=== PATIENT | female | born 1965 | race Caucasian/White ===

== ENCOUNTER → 2016-04-25 | Day surgery (SDC) | payer BC, OTHER ==
[~2016-04-25] MED LIST: Buffered Lidocaine 1% SYR 3ML* 3 ML/SYR SYRINGE ONE; Bupivacaine 0.25% SDV* 30 ML ONE; Dexamethasone IV* 4 MG/ML 1 ML (4 MG) IV SLOW PU ONE; Dexamethasone IV* 4 MG/ML 1 ML (4 MG) ONE; DiMENhydriNATE IV* 50 MG/ML VIAL IV PUSH PRN; Famotidine IV* 10 MG/ML 2 ML (20 mg) IV ONE; Famotidine IV* 10 MG/ML 2 ML (20 mg) ONE; Glycopyrrolate IV* 0.2 MG/ML 1 ML VIAL ONE; Ketorolac INJ* 30 MG/ML 1 ML VIAL ONE; Lidocaine 2% PF * 5 ML VIAL ONE; Midazolam* 1 MG/ML 5 ML VIAL (5 MG) ONE; Ondansetron INJ* 2 MG/ML VIAL IV PRN; Ondansetron INJ* 2 MG/ML VIAL ONE; Propofol* 10 MG/ML 20 ML BTL IV PUSH ONE; ceFAZolin 2 GM PREMIX (*) 2 GM/50 ML BAG IVPB ONE; fentaNYL* 50 MCG/ML 2 ML VIAL (100 MCG VIAL) IV PRN; fentaNYL* 50 MCG/ML 5 ML VIAL (250 MCG VIAL) ONE; oxyCODONE/Acetamin 5/325 MG* TAB PO PRN
[2016-04-25] MEDS: Buffered Lidocaine 1% SYR 3ML* 3 ML/SYR SYRINGE INTRADERM ONE (08:27)
[2016-04-25 10:42] VITALS: BP 110/54
--- NOTE | 2016-04-26 04:53 | OP ---
DATE OF OPERATION: 04/25/16 - LOCATED WITHIN [facility] DATE OF : 69 SURGEON: nOeil Jackson MD FOOD AND DRUG RESEARCH SCIENTIST: TAI Forde ANESTHESIOLOGIST: Dr. Escobedo. ANESTHESIA: General. PRE-OP DIAGNOSES: 1. Left carpal tunnel syndrome. 2. Left cubital tunnel syndrome. POST-OP DIAGNOSES: 1. Left carpal tunnel syndrome. 2. Left cubital tunnel syndrome. OPERATIVE PROCEDURE: 1. Left open carpal tunnel release. 2. Left in situ cubital tunnel release. INDICATIONS: Ms. Avila is a 50-year-old female with signs and symptoms of carpal and cubital tunnel syndrome. She is very tender just distal to the medial epicondyle right at the beginning of the FCU fascia about the elbow. We talked about risks and benefits. She elected to proceed with surgery. She also has some dorsoradial upper arm pain and trapezial pain. I did tell her that it is very unpredictable whether or not this would improve with the surgery and certainly the elbow discomfort and the volar forearm pain and discomfort, numbness and tingling in the fingers should have good chance of improving. ESTIMATED BLOOD LOSS: 5 mL. COMPLICATIONS: None. FINDINGS: As expected. DESCRIPTION OF PROCEDURE: Ms. Avila was seen in the preoperative holding area and the correct side and site were marked. We came back to the operating room where the anesthesia was induced, and the arm was prepped and draped in the usual fashion. Formal time-out was performed. I went ahead and made a standard 2 to 3 cm longitudinal carpal tunnel incision using the normal landmarks. Dissection was carried down through the skin, subcutaneous tissue, and palmar fascia. Prior to opening the transverse carpal ligament, I created a subcutaneous tunnel just ulnar to the palmaris longus tendon. I then came back distally and performed the release of the transverse carpal ligament sharply with the knife. The release went from distal to the proximal and was just radial to the hook of the hamate. When I got to the level of the proximal aspect of the incision and the volar wrist flexion crease , I went ahead and placed a [place]alia retractor in the subcutaneous tunnel and elevated and retracted the skin and subcutaneous tissue superficially. All the rest of the release of the transverse carpal ligament and the distal antebrachial fascia was done with a tenotomy scissors to a level about 4 to 5 cm proximal to the volar wrist flexion crease. I then went ahead and checked the decompression. It looked very nice proximally and distally. The superficial palmar arch was seen. There was absolutely no compression on the nerve, so I went ahead and irrigated the wound and the wound was closed with some 4-0 nylon suture. We then turned to our attention to the posterior medial aspect of the elbow. A curvilinear incision was made across the ulnar nerve centered over Melgar's ligament and extended a few centimeters distally and a few centimeters proximally. Dissection was carried down through the subcutaneous tissue. The medial antebrachial nerve was identified and protected. Once all the superficial dissection was performed, I then went ahead and used my tenotomy scissors to expose the ulnar nerve just proximal to Melgar's ligament. The decompression was then carried proximally all the way up to the level of the arcade of Rutledge, and the decompression was completed proximally by releasing the arcade of [place]ledge. I then used my tenotomy scissors to release Melgar's ligament. I then released the superficial FCU fascia and split the two ends of the FCU with the retractor and then released the deep subfascial layer of the FCU. There was absolutely no compression on the nerve distally or proximally. I then flexed and extended the elbow. The ulnar nerve did want to just move a little bit medially towards the medial epicondyle. I went ahead and grabbed a piece of Melgar's ligament and just closes very loosely over the ulnar nerve. There was absolutely no evidence of ulnar nerve instability or subluxation, so I thought this was plenty adequate. I went ahead and irrigated the wound. Hemostasis was obtained with a Bovie. I then went ahead closed the subcutaneous and deep layers with some 3-0 Polysorb suture. The skin was closed with 4-0 nylon suture. I then infiltrated the both operative sites with 30 mL of Marcaine in total. Wounds were then dressed with Xeroform, 4x4s, and ABD over the elbow, some sterile Webril, and Bronson wrap. She was then woken back up and taken to the recovery room in stable condition. [id number]/[facility] #: [id number] DARON
== END | disposition home or self-care (01) ==
LOC: OREAST 07:14
PROVIDERS: ATTEND Orthopaedic Surgery Hand Surgery
DX: G56.02 Carpal tunnel syndrome, left upper limb (principal); G56.22 Lesion of ulnar nerve, left upper limb
CPT/HCPCS: J0690; J1100; J1885; J2250; J2405; J2704; J3010

== ENCOUNTER 2017-08-28 10:09 | Day surgery (SDC) | payer OTHER ==
[~2017-08-28 10:09] MED LIST changes: +Buffered Lidocaine 0.9% SYRIN* 5 ML/SYR SYRINGE INTRADERM ONE; -Buffered Lidocaine 1% SYR 3ML* 3 ML/SYR SYRINGE ONE; -Bupivacaine 0.25% SDV* 30 ML ONE; -Dexamethasone IV* 4 MG/ML 1 ML (4 MG) IV SLOW PU ONE; -Dexamethasone IV* 4 MG/ML 1 ML (4 MG) ONE; -DiMENhydriNATE IV* 50 MG/ML VIAL IV PUSH PRN; -Famotidine IV* 10 MG/ML 2 ML (20 mg) ONE; -Glycopyrrolate IV* 0.2 MG/ML 1 ML VIAL ONE; -Ketorolac INJ* 30 MG/ML 1 ML VIAL ONE; -Lidocaine 2% PF * 5 ML VIAL ONE; -Ondansetron INJ* 2 MG/ML VIAL IV PRN; -Ondansetron INJ* 2 MG/ML VIAL ONE; -Propofol* 10 MG/ML 20 ML BTL IV PUSH ONE; -ceFAZolin 2 GM PREMIX (*) 2 GM/50 ML BAG IVPB ONE; -fentaNYL* 50 MCG/ML 2 ML VIAL (100 MCG VIAL) IV PRN; +fentaNYL* 50 MCG/ML 2 ML VIAL (100 MCG VIAL) ONE; -fentaNYL* 50 MCG/ML 5 ML VIAL (250 MCG VIAL) ONE; -oxyCODONE/Acetamin 5/325 MG* TAB PO PRN
[2017-08-28] MEDS ORDERED: ceFAZolin 2 GM PREMIX (*) 2 GM/50 ML BAG IVPB ONE (10:13)
[2017-08-28] MEDS ORDERED: Famotidine IV* 10 MG/ML 2 ML (20 mg) ONE (10:13)
[2017-08-28] MEDS ORDERED: Scopolamine 1.5 mg* PATCH ONE (11:29)
[2017-08-28] MEDS ORDERED: Betamethasone INJ* 6 MG/ML 5 ML VIAL (30 MG) ONE ×2 (11:33→11:35)
[2017-08-28] MEDS ORDERED: Bupivacaine 0.25% SDV* 30 ML ONE (11:34)
[2017-08-28] MEDS ORDERED: Lidocaine 1% INJ* 10 MG/ML 30 ML SDV ONE (11:35)
[2017-08-28] MEDS ORDERED: Scopolamine 1.5 mg* PATCH TRANSDERM SCH (12:00)
[2017-08-28] MEDS ORDERED: Dexamethasone IV* 4 MG/ML 1 ML (4 MG) ONE (12:33)
[2017-08-28] MEDS ORDERED: Propofol* 10 MG/ML 20 ML BTL IV PUSH ONE (12:33)
[2017-08-28] MEDS ORDERED: Ketorolac INJ* 30 MG/ML 1 ML VIAL ONE (12:33)
[2017-08-28] MEDS ORDERED: Lidocaine 2% PF * 5 ML VIAL ONE (12:33)
[2017-08-28] MEDS ORDERED: Naloxone* 0.4 MG/ML 1 ML VIAL IV PRN (13:55)
[2017-08-28] MEDS ORDERED: Ondansetron INJ* 2 MG/ML VIAL IV PRN (13:55)
[2017-08-28] MEDS ORDERED: Acetaminophen TAB* 325 MG PO PRN (13:55)
[2017-08-28] MEDS ORDERED: oxyCODONE TAB* 5 MG TAB PO PRN (13:55)
[2017-08-28] MEDS ORDERED: HYDROcodone/ACETAMIN 5-325 MG* 1 TAB ONE (14:14)
[2017-08-28 14:55] VITALS: BP 127/82
--- NOTE | 2017-08-30 07:27 | OP ---
DATE OF OPERATION: 08/28/17 - [facility] DATE OF : 69 SURGEON: Oneil Jackson MD MARKETING OUTREACH COORDINATOR: TAI Gill ANESTHESIOLOGIST: Meenu Figueroa MD ANESTHESIA: General. PRE-OP DIAGNOSES: 1. Right carpal tunnel syndrome. 2. Right cubital tunnel syndrome. 3. Right index trigger finger. 4. Right middle trigger finger. POST-OP DIAGNOSES: 1. Right carpal tunnel syndrome. 2. Right cubital tunnel syndrome. 3. Right index trigger finger. 4. Right middle trigger finger. OPERATIVE PROCEDURE: 1. Right ulnar nerve decompression at the elbow with anterior transposition. 2. Right carpal tunnel release. 3. Right index trigger finger steroid injection. 4. Right middle trigger steroid injection. ESTIMATED BLOOD LOSS: 5 mL. COMPLICATIONS: None. FINDINGS: There was instability of the ulnar nerve. DESCRIPTION OF PROCEDURE: Latha was seen in the preoperative holding area. The correct side, site, and procedure were identified. We came back to the operating room and anesthesia was induced. The arm was prepped and draped in usual fashion. A time-out was performed. I first gave Latha a steroid injection into the right index finger. 1 mL of 1 % plain lidocaine and 6 mg of betamethasone were injected into the area. I next gave her right middle finger steroid injection consisting of the same medications. After the injections were done, we proceeded with the carpal tunnel release. I made a 2- to 3-cm longitudinal incision in the standard location for an open carpal tunnel release. Dissection was carried down through subcutaneous tissue and palmar fascia. The transverse carpal ligament was released off the radial aspect of the hook of the hamate from distal to proximal. Proximally, I released the fascia and subcutaneous tissue and retracted this volarly and ulnarly and then under direct visualization, I released the remainder of the transverse carpal ligament and distal antebrachial fascia to a level several centimeters proximal to the wrist flexion crease. I checked the decompression, everything was completely decompressed. There was absolutely no compression on the nerves. We irrigated out the wound and the skin was closed with 4-0 nylon suture. Lastly, I made a curvilinear incision centered over Melgar's ligament in line with the ulnar nerve. Dissection was carried down, the medial antebrachial cutaneous nerve was identified and was protected throughout the entirety of the case. The fascia overlying the ulnar nerve was released starting just proximal to Melgar's ligament and up proximally past the arcade of [place]reck[place], then the ligament was released, lastly the fascia and the two ends of the FCU, and then the subfascial layer was released in its entirety. The motor branches to the FCU were preserved. Once the decompression was completed, it was obvious that the nerve was quite unstable, in fact even prior to the decompression, it was sitting perched on the medial epicondyle and after the decompression, it frankly subluxated anterior to the medial epicondyle. I therefore performed a neurolysis. I excised the intermuscular septum. I excised the leading edge of the FCU fascia. I raised double opposing flaps off the flexor pronator fascia in a Z-type fashion. I performed some intraneural dissection to gain some length on the motor branch of the FCU. Once everything was nice and mobile, I transposed the ulnar nerve on to the soft bed of muscular tissue, the septae from the tendons had been excised. The fascial flaps were sewed end-to-end to keep the nerve in the transposed position. I then flexed and extended the elbow multiple times, there was no absolutely no kinking or stretching or bending of the nerve. The wound was irrigated out. Hemostasis was obtained with a combination of bipolar and the Bovie. Once hemostasis was obtained, the subcutaneous tissue was reapproximated with 3-0 Vicryl, the skin was closed with 3-0 Monocryl, and Steri-Strips. The wound was dressed with Xeroform, 4x4s , sterile Webril, and a long arm splint was applied. I had infiltrated all the operative areas with 0.25% plain Marcaine prior to placing the splint. Tourniquet was deflated. The arm pinked up immediately. She was woken up and taken to the recovery room in stable condition. [id number]/[facility] #: [id number] DARON
== END 2017-08-28 14:45 | disposition home or self-care (01) ==
LOC: OREAST 10:09
PROVIDERS: ATTEND Orthopaedic Surgery Hand Surgery
DX: G56.01 Carpal tunnel syndrome, right upper limb (principal); G56.21 Lesion of ulnar nerve, right upper limb; M65.321 Trigger finger, right index finger; M65.331 Trigger finger, right middle finger; Z87.891 Personal history of nicotine dependence
CPT/HCPCS: A9270-GY; J0690; J0702; J1100; J1885; J2250; J2704; J3010

== ENCOUNTER 2018-02-19 07:21 | Day surgery (SDC) | payer OTHER ==
[~2018-02-19 07:21] MED LIST changes: +Dexamethasone TAB* 4 MG PO ONE; +DiMENhydriNATE IV* 50 MG/ML VIAL IV PUSH PRN; -Midazolam* 1 MG/ML 5 ML VIAL (5 MG) ONE; +Naloxone* 0.4 MG/ML 1 ML VIAL IV PRN; +Ondansetron TAB* 4 MG PO ONE; +PROCHLORPERAZINE INJ 5 MG/ML 2 ML VIAL IV PRN; +fentaNYL* 50 MCG/ML 2 ML VIAL (100 MCG VIAL) IV PRN; -fentaNYL* 50 MCG/ML 2 ML VIAL (100 MCG VIAL) ONE; +oxyCODONE/Acetamin 5/325 MG* TAB PO PRN
[2018-02-19] MEDS ORDERED: Dexamethasone TAB* 4 MG ONE (07:24)
[2018-02-19] MEDS ORDERED: Famotidine IV* 10 MG/ML 2 ML (20 mg) ONE (07:24)
[2018-02-19] MEDS ORDERED: Ondansetron ODT TAB* 4 MG ONE (07:24)
[2018-02-19] MEDS ORDERED: fentaNYL* 50 MCG/ML 2 ML VIAL (100 MCG VIAL) ONE (08:06)
[2018-02-19] MEDS ORDERED: KETAMINE HCL* 50 MG/ML 10 ML VIAL ONE (08:06)
[2018-02-19] MEDS ORDERED: Midazolam* 1 MG/ML 5 ML VIAL (5 MG) ONE (08:07)
[2018-02-19] MEDS ORDERED: Bupivacaine 0.25% SDV PF* 10 ML VIAL INJ ONE (08:26)
[2018-02-19] MEDS ORDERED: Propofol* 10 MG/ML 20 ML BTL ONE (09:04)
[2018-02-19] MEDS ORDERED: Lidocaine 2% PF * 5 ML VIAL ONE (09:04)
[2018-02-19 09:39] VITALS: BP 138/62
--- NOTE | 2018-02-20 03:46 | OP ---
DATE OF OPERATION: 02/19/18 [facility] DATE OF : 69 SURGEON: Oneil Jackson MD [employer] ASSOCIATE JUSTICE: TAI Gill ANESTHESIOLOGIST: Dr. Cronin ANESTHESIA: Local MAC. PRE-OP DIAGNOSIS: Right index and middle trigger fingers. POST-OP DIAGNOSIS: Right index and middle trigger fingers. OPERATIVE PROCEDURE: 1. Right index trigger finger release. 2. Right middle trigger finger release. INDICATIONS: Latha is a 52-year-old. She has had trigger fingers that have failed nonoperative treatment. We had talked about risks and benefits. She had wanted to proceed with the trigger finger releases. ESTIMATED BLOOD LOSS: 2 mL. COMPLICATIONS: None. FINDINGS: See above and below. DESCRIPTION OF PROCEDURE: Latha was seen in the preoperative holding area. The correct side, site, and procedure were identified. We came back to the operating room. The arm was prepped and draped in the usual fashion. A time- out was performed. The arm was exsanguinated with the Esmarch and the tourniquet was inflated to 250 mmHg. I made a transverse incision in the distal palmar crease over the index finger and another over the middle finger. Dissection was carried down. The digital nerves were protected throughout the surgery. I released first the A1 tirso of the right index finger along its radial third longitudinally. Once the release was completed distally and proximally, I performed a little tenosynovectomy around the tendons. Everything was moving nicely at this point , so I turned my attention to the middle finger. I then incised the A1 tirso of the middle finger along radial third longitudinally and the release was completed distally and proximally with tenotomy scissors. The tenosynovium was excised around the tendons there. The finger was then gliding nicely, so irrigated out the wound. Both skin incisions were closed with 4-0 nylon suture. Wounds were dressed and she was taken to the recovery room in stable condition. Tourniquet was used at 250 mmHg throughout the case. [id number]/[facility] #: [id number] MTDD
== END 2018-02-19 09:55 | disposition home or self-care (01) ==
LOC: OREAST 07:21
PROVIDERS: ATTEND Orthopaedic Surgery Hand Surgery
DX: M65.321 Trigger finger, right index finger (principal); M65.331 Trigger finger, right middle finger
CPT/HCPCS: A9270-GY; J2250; J2704; J3010; J3490; J8540

== ENCOUNTER 2019-04-15 07:07 | Day surgery (SDC) | payer BC, OTHER ==
[~2019-04-15 07:07] MED LIST changes: -Buffered Lidocaine 0.9% SYRIN* 5 ML/SYR SYRINGE INTRADERM ONE; +Buffered Lidocaine 1% SYRIN* 1 ML/SYRINGE INTRADERM ONE; -Dexamethasone TAB* 4 MG PO ONE; -DiMENhydriNATE IV* 50 MG/ML VIAL IV PUSH PRN; -Famotidine IV* 10 MG/ML 2 ML (20 mg) IV ONE; +Glycopyrrolate IV* 0.2 MG/ML 1 ML VIAL ONE; +Ketorolac INJ* 30 MG/ML 1 ML VIAL ONE; +Lactated Ringers 1000 ML Bag* 1,000 ML IV SCH; +Midazolam* 1 MG/ML 2 ML VIAL (2 MG) ONE; -Naloxone* 0.4 MG/ML 1 ML VIAL IV PRN; +Ondansetron INJ* 2 MG/ML VIAL ONE; -Ondansetron TAB* 4 MG PO ONE; -PROCHLORPERAZINE INJ 5 MG/ML 2 ML VIAL IV PRN; +Propofol* 10 MG/ML 20 ML BTL ONE; -fentaNYL* 50 MCG/ML 2 ML VIAL (100 MCG VIAL) IV PRN; +fentaNYL* 50 MCG/ML 2 ML VIAL (100 MCG VIAL) ONE; -oxyCODONE/Acetamin 5/325 MG* TAB PO PRN
[2019-04-15] MEDS ORDERED: Bupivacaine 0.25% SDV* 30 ML ONE (08:20)
[2019-04-15] MEDS ORDERED: Midazolam* 1 MG/ML 2 ML VIAL (2 MG) ONE (08:22)
[2019-04-15] MEDS ORDERED: Naloxone* 0.4 MG/ML 1 ML VIAL IV PRN (08:28)
[2019-04-15] MEDS ORDERED: Betamethasone INJ* 6 MG/ML 5 ML VIAL (30 MG) ONE (08:37)
[2019-04-15] MEDS ORDERED: Lidocaine 1% INJ* 10 MG/ML 30 ML SDV ONE (08:40)
[2019-04-15 09:46] VITALS: BP 141/89
--- NOTE | 2019-04-15 12:27 | OP ---
DATE OF OPERATION: 04/15/19 [facility] DATE OF : 69 SURGEON: Oneil Jackson MD INSPECTOR ROUGH CASTINGS: TAI Gill ANESTHESIOLOGIST: Dr. Weinstein. ANESTHESIA: Local MAC. PRE-OP DIAGNOSES: 1. Right ring trigger finger. 2. Left middle trigger finger. POST-OP DIAGNOSES: 1. Right ring trigger finger. 2. Left middle trigger finger. OPERATIVE PROCEDURES: 1. Right ring trigger finger release. 2. Left middle trigger finger steroid injection. INDICATIONS: Ms. Avila has the aforementioned conditions. We talked about treatment options. She wanted to proceed. ESTIMATED BLOOD LOSS: 2 mL. COMPLICATIONS: None. FINDINGS: See above and below. DESCRIPTION OF PROCEDURE: Ms. Avila was seen in the preoperative holding area. The correct site, side and procedures were identified. We came back to the operating room. She got some sedation. I injected the operative site with 0.25% plain Marcaine. I then went over to the left middle finger and injected at the A1 tirso into the tendon sheath 1 mL of 1% lidocaine and 6 mg of betamethasone using a 25 - gauge needle. A Band-Aid was applied there. The right arm was then prepped and draped in usual fashion and a time-out was performed. The arm was exsanguinated and the tourniquet inflated. I made a 1 cm incision over the right ring finger A1 tirso. Dissection was carried down. Full- thickness flaps were raised off the tendon sheath. Ragnell retractors were placed. The A1 tirso was incised longitudinally. The fascia was released proximally. I then had her flex and extend the fingers and there was no triggering. The wound was therefore irrigated out. The skin was closed with 4- 0 nylon suture. A soft dressing was applied and she was taken to the recovery room in stable condition. [id number]/[facility] #: [id number] [facility]
== END 2019-04-15 09:48 | disposition home or self-care (01) ==
LOC: OREAST 07:07
PROVIDERS: ATTEND Orthopaedic Surgery Hand Surgery
DX: M65.341 Trigger finger, right ring finger (principal); M65.332 Trigger finger, left middle finger
CPT/HCPCS: J0702; J1885; J2250; J2405; J2704; J3010; J3490